=== PATIENT | male | born 1945 | race Caucasian/White ===

== ENCOUNTER 2021-05-13 07:48 | Day surgery (SDC) | payer MEDICARE ==
[2021-05-13] VITALS (9 sets, daily range): BP systolic 137–185; BP diastolic 58–92
[~2021-05-13] VITALS: Ht 170.2 cm; Wt 75.1 kg
[2021-05-13] MEDS ORDERED: cefazolin/dext.iso 2gm/50ml 50 ML IV ONE (08:10)
[2021-05-13] MEDS ORDERED: VANCOMYCIN 1,500MG inj. 1,500 MG in normal saline 250ml IV soln 300 ML IV ONE (08:10)
[2021-05-13] MEDS ORDERED: MULT-227 PO (08:32)
[2021-05-13] MEDS ORDERED: AMLO5TAB16 PO (08:32)
[2021-05-13] MEDS ORDERED: LEVO75TA PO (08:32)
[2021-05-13] MEDS ORDERED: ASPI-1265 PO (08:32)
[2021-05-13] MEDS ORDERED: LISI20TA28 PO (08:32)
[2021-05-13] MEDS ORDERED: CHOL400C8 PO (08:32)
[2021-05-13] MEDS ORDERED: OSC500T PO (08:32)
[2021-05-13] MEDS ORDERED: HYDR12.55 PO (08:32)
[2021-05-13] MEDS ORDERED: CLON-330 PO (08:32)
[2021-05-13] MEDS ORDERED: DOCU-21 PO (08:32)
[2021-05-13] MEDS ORDERED: PRAV10TA39 PO (08:32)
[2021-05-13] MEDS ORDERED: RIVA20TA PO (08:32)
[2021-05-13 08:57] LABS: EOSINOPHILS # (AUTO) 0.1 X10'3 (0-0.9); EOSINOPHILS % (AUTO) 3.2 % (0-6); HEMATOCRIT 39.4 % (42.0-52.0); HEMOGLOBIN 13.6 g/dl (14.0-17.9); LYMPHOCYTES # (AUTO) 0.4 X10'3 (1.1-4.8); LYMPHOCYTES % (AUTO) 12.4 % (21-51); MEAN CORPUSCULAR HGB CONC 34.4 g/dL (33.0-36.5); MEAN CORPUSCULAR VOLUME 90.1 FL (78-98); MEAN PLATELET VOLUME 9.3 FL (7.4-10.4); MONOCYTES # (AUTO) 0.4 X10'3 (0-0.9); MONOCYTES % (AUTO) 10.9 % (2-12); NEUTROPHILS # (AUTO) 2.4 X10'3 (1.8-7.7); NEUTROPHILS % (AUTO) 72.5 % (42-75); PLATELET COUNT 172 X10'3 (140-440); RED BLOOD COUNT 4.38 X10'6 (4.70-6.10); RED CELL DISTRIBUTION WIDTH 14.1 % (11.5-14.5); WHITE BLOOD COUNT 3.4 X10'3 (4.5-11.0)
[2021-05-13] MEDS ORDERED: midazolam 1 mg/ML 2ml injection ONE ×2 (08:58→10:35)
[2021-05-13] MEDS ORDERED: fentaNYL/PF 50MCG/1 ML 2ML syringe ONE (08:58)
[2021-05-13] MEDS ORDERED: vancomycin 1,000mg inj ONE (08:58)
[2021-05-13] MEDS ORDERED: LIDOCAINE 2% w/EPI 1:100:000 30mL injection MDV**cath lab 1 only ONE (09:03)
[2021-05-13 09:46] LABS: POTASSIUM 3.5 MMOL/L (3.5-5.1); SODIUM 134 MMOL/L (135-145)
[2021-05-13 09:48] LABS: ANION GAP 10 (8-16); BLOOD UREA NITROGEN 11 MG/DL (7-18); BUN/CREATININE RATIO 10.1 (5.4-32.0); CALCIUM 9.5 MG/DL (8.5-10.1); CHLORIDE 94 MMOL/L (99-107); CREATININE 1.09 MG/DL (0.60-1.10); GLUCOSE 118 MG/DL (70-104); MAGNESIUM 1.8 MG/DL (1.5-2.4); TOTAL CARBON DIOXIDE 30.2 MMOL/L (24-32); eGFR 66 ML/MIN
[2021-05-13] MEDS ORDERED: HYDROcodone/acetaminophen 5mg/325mg tablet PO PRN (11:50)
[2021-05-13] MEDS ORDERED: HYDROcodone/acetaminophen 10/325mg tab PO PRN (11:50)
[2021-05-13] MEDS ORDERED: normal saline 1000ml 1,000 ML IV SCH (11:55)
[2021-05-13] MEDS ORDERED: cloNIDine 0.1 mg tablet PO SCH (13:30)
== END 2021-05-13 14:00 | disposition home or self-care (01) ==
LOC: SSTAY O 07:48
PROVIDERS: ATTEND Internal Medicine Cardiovascular Disease
DX: I49.5 Sick sinus syndrome (principal); I48.20 Chronic atrial fibrillation, unspecified; I25.118 Atherosclerotic heart disease of native coronary artery with other forms of angina pectoris; I10 Essential (primary) hypertension; E78.5 Hyperlipidemia, unspecified; E03.9 Hypothyroidism, unspecified; Z95.5 Presence of coronary angioplasty implant and graft; Z79.899 Other long term (current) drug therapy; Z98.890 Other specified postprocedural states
CPT/HCPCS: 33207; 36415; 71045; 80048; 83735; 85025; 85610; 93005; 99152; 99153; C1786; C1894; C1898; J0690; J2250; J3010; J3370; J3490; J7050; A4565; A4620; A6258